=== PATIENT | male | born 1955 | race Caucasian/White ===

== ENCOUNTER 2024-03-31 07:35 | Outpatient (CLI) | payer MEDICARE, OTHER, SELFPAY ==
--- NOTE | 2024-03-31 08:56 | W.ANESCHARGE ---
Anesthesia Charges Start Date/Time Anesthesia Start Date: 03/31/24 Anesthesia Start Time: 08:23 Stop Date/Time Anesthesia Stop Date: 03/31/24 Anesthesia Stop Time: 08:55
== END 2024-03-31 07:36 | disposition home or self-care (01) ==
PROVIDERS: PCP Family Medicine; Visit Provider Internal Medicine Gastroenterology
DX: Z12.11 Encounter for screening for malignant neoplasm of colon (principal); D12.8 Benign neoplasm of rectum; Z86.0101 Personal history of adenomatous and serrated colon polyps
CPT/HCPCS: 00811; 45380; 88305; J2704

== ENCOUNTER 2024-06-27 18:33 | Emergency (ER) | payer MEDICARE, OTHER, SELFPAY ==
--- OUTSIDE RECORDS SUMMARY | 2024-06-27 18:36 | XMS_ITS | Clinical Summary ---
Author Organization [employer] Address [address] [place] [address] Care Team Providers Care [place] Hammerer Name Role Phone RobertoteMarcel garrison MD Primary Care Provider + Allergies No known active allergies Medications acetaminophen (TYLENOL) 325 mg tablet Take 2 tablets by mouth every 4 hours if needed (For mild pain.). Max acetaminophen dose: 4000mg in 24 hrs. 0 0 Active amLODIPine (NORVASC) 2.5 mg tabletIndicatio ns:Primary Raynaud's phenomenon Take 1 Tablet (2.5 mg) by mouth once daily. 90 Tablet 3 4 Active sildenafil citrate (VIAGRA) 100 mg tabletIndicatio ns:Erectile dysfunction of organic origin Take 1 Tablet (100 mg) by mouth once daily if needed for Erectile Dysfunction. Take 30min to 4 hours before sexual activity. Max 100mg/24hr. 10 Tablet 11 4 Active polyethylene glycol-electrol yte (GOLYTELY) 236-22.74-6.74 -5.86 gram suspensionIndic ations:Adenomat ous polyp of colon, unspecified part of colon Drink 2 liters the day before the procedure and 2 liters 6 hours prior to procedure. 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 10/04/2012 11/06/2020 Fracture of multiple ribs 09/19/2012 Encounters Date Type Department Care Team Description 03/31/2024 7:45 AM EXTRUDING PRESS ADJUSTER Office Visit [facility] at [address] [address] Emmanuel Clarke MD 03/31/2024 Lab Requisition [facility] [phone] Emmanuel Clarke MD from Last 3 Months Immunizations Immunization Administration Dates Next Due COVID-19 vaccine ([employer] 30mcg/0.3mL) 12YO+ BIVALENT PF, MDV 01/05/2022 Influenza, IIV3 (Age >=3 years) 01/23/2013,01/05,01/07/2011 Influenza, IIV4 (=>6mos) MDV 01/23/2015 Influenza, Inactivated AIIV4 (Age 65+ Years) Preserv Free 01/05/2022 Influenza, Inactivated IIV3 (Age 65+ Years) Preserv Free 12/23/2023 Pneumococcal Conj 20-valent (Prevnar 20) 022 Pneumococcal conj 13-Valent (Prevnar 13) 021 Td (Age >=7 Years) 03/29/2006 Tdap 09/28/2018 Zoster (Shingrix-RZV, recombinant) 01/06/2019, Family History Medical History Relation Name Comments Good Health Father Good Health Mother Relation Name Status Comments Father Alive Mother Alive Social History Tobacco Use Types Packs/Day Years Used Date Smoking Tobacco: Former Cigarettes 1 25 0 12/12/1995 - 12/11/2020 Smokeless Tobacco: Never Tobacco Cessation:Counseling Given: Yes Comments:TIP 10/03/2019 Alcohol Use Standard Drinks/Week Comments Not Currently 0 (1 standard drink = 0.6 oz pur e alcohol) PHQ-2 Answer Date Recorded PHQ-2 TOTAL SCORE 0 12/23/2023 Social Connections Answer Date Recorded Do you often feel lonely or isolated from those around you? 0 12/23/2023 Financial Resource Strain Answer Date R ecorded Difficulty of Paying Living Expenses 3 12/23/2023 Difficulty of Paying Living Expenses Not on file 12/23/2023 Food Insecurity Answer Date Recorded Do you worry your food will run out before you are able to buy more? 1 12/23/2023 Transportation Needs Answer Date Record ed Does lack of transportation keep you from medica l appointments? 1 12/23/2023 Does lack of transportation keep you from work, meetings or getting things that you need? 1 12/23/2023 Housing Stability Answer Date Recorded What is your housing situation today? 1 12/23/2023 Utilities Answer Date Recorded Do you have trouble paying f or utilities (for example, heat, electricity, water, phone)? 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 on file Not on file Not on file Obstetrics History Last Filed Vital Signs Vital Sign Reading Time Taken Comments Blood Pressure 142/64 03/15/2024 9:58 AM EXTRUDING PRESS ADJUSTER Pulse 70 03/15/2024 9:58 AM EXTRUDING PRESS ADJUSTER Temperature 36.9 C (98.4 F) 03/15/2024 9:58 AM EXTRUDING PRESS ADJUSTER Respiratory Rate 18 10/03/2019 8:26 AM CDT Oxygen Saturation 95% 03/15/2024 9:58 AM EXTRUDING PRESS ADJUSTER Inhaled Oxygen Concentration - - Weight 89.3 kg (196 lb 14.4 oz) 03/15/2024 9:58 AM EXTRUDING PRESS ADJUSTER Height 188 cm (6' 2) 03/15/2024 9:58 AM EXTRUDING PRESS ADJUSTER Body Mass Index 25.28 03/15/2024 9:58 AM EXTRUDING PRESS ADJUSTER Plan of Treatment Health Maintenance Due Date Last Done Comments Low Dose CT (for lung CA) ag e 50-80 09/16/2013 09/16/2012 RSV vaccine for adults or (1 - Risk 60-74 years 1-dose series) 2015 AAA screening age 65-74 08/19/2020 COVID-19 vaccine series (5 - 2024-25 season) 2023 01/05/2022, 03/11/2021, 07/02/2020, Additional history exists Medicare Wellness for age 65+ 12/23/2024, 01/05/2022, 11/06/2020 Depression screening for age 12+ 12/26/2024 12/27/2023, 12/23/2023, 01/05/2022, Additional history exists BMI (ht and wt on same day) for age 18+ 03/15/2025 03/15/2024, 12/23/2023, 01/05/2022, Additional history exists Tetanus booster 09/28/2028 09/28/2018, 03/29/2006 Lipids for age 45-75 12/22/2028 12/23/2023, 01/05/2022, 11/06/2020, Additional history exists Colonoscopy through age 75 03/31/203403/31, 03/31/2024, 04/13/2018, Additional history exists Tdap Completed 09/28/2018 Zoster (shingles) series for age 50+ Completed 01/06/2019, 09/28/2018 Hepatitis C screening for ag e 18-79 Completed 01/05/2022 Pneumococcal series for age 50+ Completed , 11/06/2020 Influenza Vaccine Completed 12/23/2023, , 01/23/2015, Additional history exists Medical Devices Implanted Type Area Mandarin Speaking Nanny Device Identifier Shelf Expiration Date Model / Serial / Lot Screw Neuro 4mm Matrixneuro Slf Drill Titnm - [id number] Implanted:Qty: 6 on 10/01/2019 by Jason Ontiveros MD at [facility] [employer] CMF [id number] / / Karan Hole Cover Neuro 17mm Synthes Low Pro Titnm - [id number] Implanted:Qty: 2 on 10/01/2019 by Jason Ontiveros MD at [facility] [employer] CMF [id number] # / / Procedures Procedure Name Priority Date/Time Associated Diagnosis Comments LAB TRACKING EVENT Routine 03/31/2024 8: 48 AM EXTRUDING PRESS ADJUSTER PATH TISSUE EXAM Routine 03/31/2024 8:48 AM EXTRUDING PRESS ADJUSTER COLONOSCOPY SCREENING Routine 03/31/2024 12:00 AM EXTRUDING PRESS ADJUSTER History of colon polyps LIPID PANEL W REFLEX MEASURED LDL Routine 12/23/2023 2:40 PM CDT Screening cholesterol level ANTI HCV Routine 01/05/2022 11:45 AM CDT Need for hepatitis C screening test CT CHEST WO Routine 09/16/2012 1:57 PM CDT Rib pain from Last 3 Months or Most Recently Relevant to Health Maintenance Results * LAB TRACKING EVENT (03/31/2024 8:48 AM EXTRUDING PRESS ADJUSTER) Other (Other) Client Collect / Unknown 03/31/2024 8:48 AM EXTRUDING PRESS ADJUSTER 03/31/2024 10:10 PM EXTRUDING PRESS ADJUSTER us Emmanuel Clarke MD LAB BILL ONLY Final Res ult [facility] [address] [place] [address], * PATH TISSUE EXAM (03/31/2024 8:48 AM EXTRUDING PRESS ADJUSTER) Case Report Pathology Report Case: [id number] Authorizing Provider: Emmanuel Clarke MD Collected: 03/31/2024 0848 Ordering Location: [facility] Received: 04/01/2024 0536 Pathologist: Ranjan Degroot MD Specimen: Rectal Biopsy 04/03/2024 2:11 PM EXTRUDING PRESS ADJUSTER [facility] Final Diagnosis A) RECTUM, POLYPECTOMY: 1. Hyperplastic polyp 04/03/2024 2:11 PM EXTRUDING PRESS ADJUSTER [facility] LAB[facility]ORY at [address] EXTRUDING PRESS ADJUSTER Clinical Information Mr. Gibson is a 68 y.o. with personal history of colonic polyps who presents for high risk colon cancer surveillance. 04/03/2024 2:11 PM EXTRUDING PRESS ADJUSTER [facility] Gross Description A) Received in formalin is a reeves mucosal fragment measuring 3 mm in greatest dimension, which is entirely submitted in one cassette. It is labeled with the patient's name and designated rectal biopsy. Jonnathan Glasgow 04/01/2024 10:05 AM 04/03/2024 2:11 PM EXTRUDING PRESS ADJUSTER [facility]- EN[facility] LABORATORY Microscopic Description The final diagnosis is based on microscopic examination of appropriate sections of all specimens. 04/03/2024 2:11 PM EXTRUDING PRESS ADJUSTER [facility]- [facility] LAB[facility] Additional Information Interpreted at [facility] - [address] [facility] [address] [address] 04/03/2024 2:11 PM EXTRUDING PRESS ADJUSTER [facility] Other (Rectal Biopsy) 03/31/2024 8:48 AM EXTRUDING PRESS ADJUSTER 04/01/2024 5:36 AM EXTRUDING PRESS ADJUSTER Emmanuel Clarke MD PATHOLOGY/CYTOLOGY Final Result Performing Organization Address City/State/[facility] Co de Phone Number [facility] [address] [place] [address], * COLONOSCOPY SCREENING (03/31/2024 12:00 AM EXTRUDING PRESS ADJUSTER) Marcel Tobar MD GI PROCEDURE ORD Final R esult * (ABNORMAL) LIPID PANEL W REFLEX MEASURED LDL (12/23/2023 2:40 PM CDT) CHOLESTEROL, TOTAL 203(H) <200 mg/dL [facility] HDL CHOLESTEROL 51 > OR = 40 mg/dL [facility] TRIGLYCERIDES 72 <150 mg/dL [facility] LDL-CHOLESTEROL 136(H) mg/dL (calc) [facility] Comment: Reference range: <100 Desirable range <100 mg/dL for primary prevention; <70 mg/dL for patients with CHD or diabetic patients with > or = 2 CHD risk factors. LDL-C is now calculated using the David calculation, which is a validated novel method providing better accuracy than the Friedewald equation in the estimation of LDL-C. Emmanuel SHAH et al. JOSE. 2013;310(19): 0912-0639 (http://education.Recurious/faq/RQN387) CHOL/HDLC RATIO 4.0 <5.0 (calc) [facility] NON HDL CHOLESTEROL 152(H) <130 mg/dL (calc) [facility] Comment: For patients with diabetes plus 1 major ASCVD risk factor, treating to a non-HDL-C goal of <100 mg/dL (LDL-C of <70 mg/dL) is considered a therapeutic option. Blood BLOOD SPECIMEN / Unknown 12/23/2023 2:40 PM CDT 12/23/2023 2:40 PM CDT Marcel Tobar MD CHEMISTRY Final Re sult Performing Organization Address [facility]/ZIP Co de Phone Number [facility] [address] [place] [address], [address] [address] * ANTI HCV (01/05/2022 11:45 AM CDT) HEPATITIS C ANTIBODY Non-React venus Non-React venus 01/06/2022 6:59 AM CDT [facility] Comment:Antibodies to HCV no t detected; does not exclude the possibility of exposure to HCV. Blood BLOOD SPECIMEN / Unknown Butterfly / Unknown 01/05/2022 11:45 AM CDT 01/05/2022 11:47 AM CDT us Marcel Tobar MD SEND OUTS Final Re sult [facility] [address] [place] [address], [place] * CT CHEST WO (09/16/2012 1:57 PM CDT) Anatomical Region Laterality Modality CHEST, THORAX, HEART Computed To mography 09/16/2012 2:13 PM CDT Narrative 09/16/2012 2:13 PM CDT INDICATION: Intense midback pain in the paraspinal region on the left since the patient suffered a fall on August 28, 2012. Patient fell approximately 9 feet landing mostly on his left side and break in the fall with right hand. Technique: Multi detector unenhanced axial plane helical CT of the chest was performed. Sagittal and coronal reformatted images generated. Comparison: None. Findings: The examination demonstrates acute to subacute nondisplaced fractures involving the left paraspinal 1st through 11th ribs. Some of the rib fractures demonstrated early callus formation. Incidental ununited apophyses of the transverse processes at L1 bilaterally. No other definite fractures involving the thoracic cage or spine are identified. No pleural or pericardial effusions are seen. The thoracic aorta is normal in caliber. Given the lack of intravenous contrast, no significantly enlarged intrathoracic lymph nodes are identified. No pulmonary infiltrates or contusions are identified. Images through the upper abdomen are unremarkable. Impression: 1. Multiple acute/subacute nondisplaced fractures involving the posterior paraspinal aspects of the left 1st through 11th ribs. 2. No pulmonary contusion or pneumothorax identified. Dictated by Blas Recio @ Sep 16 2012 2:13PM (Electronically Signed) Procedure Note Azeem Recio, DO - 09/16/2012 INDICATION: Intense midback pain in the paraspinal region on the left since thepatient suffered a fall on August 28, 2012. Patient fell approximately 9feet landing mostly on his left side and break in the fall with righthand. Technique: Multi detector unenhanced axial plane helical CT of the chest wasperformed. Sagittal and coronal reformatted images generated. Comparison: None. Findings: The examination demonstrates acute to subacute nondisplaced fracturesinvolving the left paraspinal 1st through 11th ribs. Some of the ribfractures demonstrated early callus formation. Incidental ununitedapophyses of the transverse processes at L1 bilaterally. No otherdefinite fractures involving the thoracic cage or spine are identified.No pleural or pericardial effusions are seen. The thoracic aorta isnormal in caliber. Given the lack of intravenous contrast, nosignificantly enlarged intrathoracic lymph nodes are identified. Nopulmonary infiltrates or contusions are identified. Images through theupper abdomen are unremarkable. Impression: 1. Multiple acute/subacute nondisplaced fractures involving the posteriorparaspinal aspects of the left 1st through 11th ribs. 2. No pulmonary contusion or pneumothorax identified. Dictated by Blas Recio @ Sep 16 2012 2:13PM (Electronically Signed) Sung Jack MD CT Final Resu lt from Last 3 Months or Most Recently Relevant to Health Maintenance Insurance [employer] PB ONLY Advance Directives * Full Code (Latest Code Status on File) Date Activated Date Inactivated Comments 09/29/2019 7:09 PM 10/03/2019 1:37 PM Care Teams [place] Hammerer Relationship Specialty Start Date End Date Votel, Marcel Lee MD [address] [place] [address] PCP - General Family Practice 12/08/23
[2024-06-27 18:40] VITALS: BP 132/74; PULSE 58; RESP 18; TEMP 36.6; O2SAT 97; BMI 24.0
--- NOTE | 2024-06-27 18:47 | ED_ITS ---
HPI - General Adult General Chief complaint: Insect Bite Stated complaint: tick bite Time Seen by Provider: 06/27/24 18:46 History of Present Illness HPI narrative: Patient presents to the emergency department complaining of a tick bite. Patient removed a tick from the back of his left calf. Area is red and painful. 68-year-old man presenting to the emergency department with concern of tick bite and related inflammation. He removed it and squeezed hard on the area. Area became red and painful admittedly now settled down. Was removed just a little bit ago. Tick may have been in place up to 24 hours. They do have the tick here. It has been encased in scotch tape. I am able to look at this more closely. Mouth parts appear to be intact and I would think this is a standard tick/wood tick. Though review of images online with spouse there is potential similarity to this and a female deer tick. Related Data Home Medications ?Medication ?Instructions ?Recorded ?Confirmed amlodipine 2.5 mg tablet 2.5 mg PO DAILY 06/27/24 06/27/24 sildenafil 100 mg tablet 100 mg PO DAILY PRN 06/27/24 06/27/24 Allergies Allergy/AdvReac Type Severity Reaction Status Date / Time No Known Drug Allergies Allergy Verified 06/27/24 18:46 Review of Systems Status of ROS: Reports: 6 or more systems reviewed and unremarkable except as noted in History and below [facility] Social History Smoking Status: Never smoker Do you use any of these nicotine containing products: None How often do you have a drink containing alcohol: never AUDIT-C Alcohol total score: 0 Non-prescribed substance use: denies use Exam Narrative: Exam Narrative: Pleasant. NAD. Energy. Dime-sized area of erythema in the back of the left calf. Central small amount of desquamation. No significant induration or calor. No residual insect parts apparent with magnified viewing. Const: Vital Signs, click to edit/add: Vital Signs - 24 hr 06/27/24 18:40 Temperature 98 F Pulse Rate [Right Pulse Oximeter] 58 L Respiratory Rate 18 Blood Pressure [Ri ght Upper Arm] 132/74 Pulse Oximetry 97 Oxygen Delivery Me thod Room Air Documenting provider has reviewed patient's vital signs: yes Course Vital Signs Vital signs: Initial Vital Signs Temperature 98 F 06/27/24 18:40 Temperature Source Temporal Artery Scan 06/27/24 18:40 Pulse Rate 58 L 06/27/24 18:40 Pulse Rhythm Regular 06/27/24 18:40 Pulse Strength 3+ Normal 06/27/24 18:40 Respiratory Rate 18 06/27/24 18:40 Blood Pressure 132/74 06/27/24 18:40 Blood Pressure Mean 93 06/27/24 18:40 Blood Pressure Position Sitting 06/27/24 18:40 Pulse Oximetry 97 06/27/24 18:40 Oxygen Delivery Method Room Air 06/27/24 18:40 Vital Signs Temperature 98 F 06/27/24 18:40 Pulse Rate 58 L 06/27/24 18:40 Respiratory Rate 18 06/27/24 18:40 Blood Pressure 132/74 06/27/24 18:40 Pulse Oximetry 97 06/27/24 18:40 Oxygen Delivery Method Room Air 06/27/24 18:40 Temperature 98 F 06/27/24 18:40 Pulse Rate 58 L 06/27/24 18:40 Respiratory Rate 18 06/27/24 18:40 Blood Pressure 132/74 06/27/24 18:40 Pulse Oximetry 97 06/27/24 18:40 Oxygen Delivery Method Room Air 06/27/24 18:40 Medications Administered Medications: Discontinued Medications Generic Name Dose Route Start Last Admin Trade Name Iainq PRN Reason Stop Dose Admin Doxycycline Hyclate 200 mg 06/27/24 19:01 06/27/24 19:42 Doxycycline Hyclate 100 Mg PO 06/27/24 19:02 200 mg ONCE ONE Administration Medical Decision Making MDM Narrative Medical decision making narrative: I think this is unlikely to be a deer tick. Furthermore duration of attachment was likely less than 24 hours so unlikely to transmit any disease. Mr. Gibson however is understandably concerned. I did offer single dose of doxycycline given here in the emergency department. See patient discharge plan for further discussion You might apply a little antibiotic ointment to this bite location over the next couple of days. Monitor for marked increase in pain, spreading redness in heat, swelling. Medical Records Medical records reviewed: Yes I reviewed the patient's medical records Discharge Plan Discharge Clinical Impression: Tick bite Patient Disposition: Home w/ Parent or Adult Condition: Stable Additional Instructions: You might apply a little antibiotic ointment to this bite location over the next couple of days. Monitor for marked increase in pain, spreading redness in heat, swelling. Prescriptions: No Action amlodipine 2.5 mg tablet 2.5 mg PO DAILY sildenafil 100 mg tablet 100 mg PO DAILY PRN Follow Up/Referrals: Marcel Tobar MD [Primary Care Provider] - Stand Alone Forms: [employer] Info Instructions
--- OUTSIDE RECORDS SUMMARY | 2024-06-27 19:27 | XMS_ITS | Data Portability ---
Author Organization [facility] - (IP) Address [address] [place] [address] Care Team Providers Care Commercial Parts Professional Name Role Phone REJI AGUILA Primary Care Provider FAM WATERMAN Referring Provider [phone] Assessment Encounter Date Assessment Date Assessment LastModified by Organization Details LastModified Time 10/31/2019 10/31/2019 Otto Gibson is a 64-year-old gentleman who is one month status post bilateral lavelle holes for bilateral subdural hematomas. He is making a nice steady recovery from his surgery. Head CT reveals interval improvement in the subdural with a small amount of fluid remaining. His incisions are healing. However, he does have a fair amount of eschar bilaterally. He completed his a short course of Keppra and has had no concerns for seizure. PLAN 1. We will have the patient follow-up in one month without imaging. This is primarily for evaluation of his incisions to ensure that they continue to heal. 2. He will follow up at two months from now with a repeat head CT. 3. The patient is provided a return to work form stating a Return to Work on November 07, 2019, without restrictions. 4. The patient understands and agrees with this plan. He will call with any questions or concerns that arise in the meantime. [email or web address] Not available 11/01/2019 11:58:37 12/05/2019 12/05/2019 ASSESSMENT 1. Status post bilateral lavelle holes for subdural hematoma evacuation on October 01, 2019, by Dr. Ontiveros. 2. Right anterior lavelle hole incision eschar formation. PLAN 1. Otto is doing quite well at this time. His incisions are healing appropriately, though the right frontal lavelle hole incision site seems to be a little delayed. The incision is otherwise intact. 2. He does have a followup appointment already scheduled on January 09, 2020, with a repeat CT of the head at that time for further evaluation. 3. We did discuss ongoing incision care instructions. Otto will continue to monitor the area and contact us with any concerns. rosa Not available 12/06/2019 09:22:19 01/09/2020 01/09/2020 RECOMMENDATION Mr. Gibson is a 64-year-old male status post bilateral lavelle hole drainage of subdural hematomas on October 01, 2019. The patient is recovering very well from surgery, now approximately 3 months out from surgery. He continues to note improvement of his headaches. He has no new neurological complaints today. His head CT scan and neuro exam are stable. The patient was seen by Dr. Ontiveros who agrees that his head CT scan looks very good and that there is no requirement for additional follow-up or a any repeat imaging in the future. Mr. Gibson knows to call should he have any questions or concerns, he can be seen at any time should he have worsening headaches or develops any new neurological complaints. rosa Not available 01/10/2020 09:04:28 Plan of Treatment Reminders Order Date Submit Date Provider Last Modified By Organization Details Last Modified Time Details Appointments None record ed. Lab None record ed. Referral None record ed. Procedures None record ed. Surgeries None record ed. Imaging None record ed. Medication Orders None record ed. Patient TargetsNo targets recorded. Patient InstructionsNo instructions recorded. Reason for Referral None Reported. Results Created Date Observation Date Name Description Value Unit Range Abnormal Flag Note LastModifiedBy Organization Detail LastModifiedTime 10/01/1909/30/2019 CT, head + brain , w/o contr ast No observ ation record ed. [email or web address] [facility] [address], [place], [address], 10/02/2019 11:15:15 10/03/19 20 10/02/2019 CT, head, w/o contr ast No observ ation record ed. joel chavez [facility] [address], [place], [address], 10/03/2019 11:25:28 10/31/19 20 10/31/2019 CT, head, w/o contr ast No observ ation record ed. [email or web address] [facility] [address] [address], [place], [address], 11/01/2019 10:34:29 01/10/20 20 01/09/2020 CT, brain , w/o contr ast No observ ation record ed. [email or web address] a [facility] [address] [facility] [address], [place], [address], 01/10/2020 09:38:59 Result Notes None recorded. Problems Name Problem SNOMED Code Status Onset Date Resolution Date Notes Provider Name and Address Organization Details Recorded Time Subdural hematoma 46200765 Active DARA Villavicencio - [facility] 0 09:21:52 Problem Notes None recorded. Procedures Surgical History None recorded. Imaging Results Imaging Date Name Status LastModified by [facility] Details LastModified Time 09/30/2019 CT, head + brain, w/o contrast completed [email or web address] [facility] [address] [place], [address], 10/02/2019 11:15:15 10/02/2019 CT, head, w/o contrast completed marina [facility] [address] [place], [address], 10/03/2019 11:25:28 10/31/2019 CT, head, w/o contrast [email or web address] [address] [facility], [place], [address], 11/01/2019 10:34:29 01/09/2020 CT, brain, w/o contrast completed [email or web address] [facility] [address] [facility] [address], [place], [address], 01/10/2020 09:38:59 Procedure Notes None recorded. Medical Equipment None Reported. Allergies No known drug allergies Medications Name Sig Start Date Stop Date Status Note LastModified by Organization Details LastModified Time levetiracetam 500 mg tablet active Not Available Not Availabl e Not Available sildenafil 100 mg tablet active Not Available Not Available No t Available oxycodone 5 mg tablet active Not Available Not Available Not Available Shingrix (PF) 50 mcg/0.5 mL intramuscular suspension, kit active Not Available Not Availa ble Not Available Vitals None Recorded Social History None recorded. Functional Status None recorded. Mental Status None recorded. Family History Nothing Reported. Medical History No medical history recorded. Past Encounters Encounter ID Performer Location Encounter Start Date Encounter Closed Date Diagnosis/Indication Diagnosis SNOMED-CT Code Diagnosis ICD10 Code Diagnosis Note [id number] Ana [facility] [id number] [place] [phone] 10/31/2019 13:19:18 10/31/2019 14:07:17 [id number] [facility] [id number] [place] [address] [id number] 12/05/2019 16:03:08 12/05/2019 16:43:10 [id number] [facility] Office [id number] [place] [address] [id number] 01/09/2020 13:43:24 01/09/2020 14:18:46 Health Concerns Section Related Observation LastModified by Organization Detai ls LastModified Time None Recorded Concern Status LastModified by Organization Details LastModified Time None Recorded Advance Directives Directive None Recorded Payers Encounter Date Sequence Insurance Name Policy Number Policy Britt Covered Member ID Britt Member ID Guarantor Name 10/31/2019 1 [place] [id number] Anya Gibson [id number] Otto Gibson 12/05/2019 1 [place] [id number] Anya Gibson [id number] Otto Gibson 01/09/2020 1 [place] [id number] Anya Gibson [id number] Otto Gibson Notes Date Note Type Note Provider Name and Address Organization Details Recorded Time 10/31/2019 text/html I had the pleasu re of seeing Otto Gibson in the Neurosurgery Clinic today as a follow-up for Dr. Ontiveros. Mr. Gibson is a 64-year-old gentleman, who is status post bilateral lavelle holes for bilateral subdural hematoma on October 01, 2019, by Dr. Ontiveros. He initially presented to [facility] on September 28 for evaluation of severe headaches. He has no history of anticoagulation and no concern for seizure activity. He did have a potential fall approximately a month prior to his presentation to the hospital. Today, he returns to clinic stating that he has been doing well overall. He does continue to have some occasional headaches; however, they have become less frequent and less severe since his surgery. He states that they most often occur in the evening. He denies any change in vision, hearing, or speech. He denies any sensorimotor complaints throughout his extremities. He states that he was previously drinking approximately 15 drinks per week prior to surgery, but he has not used any alcohol since surgery. He denies any incisional complaints. Rutherford were removed by his PCP. He does continue to have some scabbing over his incisions, but denies any drainage, edema, or significant pain. DARA Waters - [facility] 11/01/2019 11:59:03 12/05/2019 text/html Mr. Gibson retur ns to Dr. Ontiveros's clinic, having last been seen on October 31, 2019, by Radha Salgado PA-C. Of note, Mr. Gibson is status post bilateral lavelle holes for bilateral subdural hematoma evacuation on October 01, 2019, by Dr. Ontiveros. When he was last seen, his head CT showed a good improvement in his subdural collections with a slight amount of fluid present still over the left frontal region. This appointment today was arranged for an incision check as he did have some ongoing eschar formation at his last appointment. Otto reports that his incisions have almost completely healed up with the exception of the right anterior lavelle hole site, which does still have some eschar formation. He reports no issues with it, though. DARA Villavicencio - [facility] 12/06/2019 09:22:41 01/09/2020 text/html Mr. Gibson is a 64-year-old male who underwent bilateral lavelle hole procedure for evacuation of subdural hematoma on October 01, [address] Ontiveros. The patient had suffered a fall 1 to 2 months prior when he was sleepwalking. Since we last saw the patient, he continues to recover well. There was some concerns on his first 2 postop appointments regarding healing of his incision. There was a fair amount of eschar bilaterally. The patient has had resolution of this. He is not currently experiencing any issues with his incision. There has been no drainage or evidence of infection. Mr. Gibson reports that he continues to have intermittent headaches, when he experiences headaches, he describes them as generalized. He also notes associated photo and phonophobia. The headaches are often brought on if he is on his computer for prolonged periods. He describes the headaches as being mild. He does not take any pain medication for them and they resolve with time. He does note that they have gradually been becoming more infrequent over the last several months. Mr. Gibson denies any visual changes, any nausea or vomiting. He denies any upper or lower extremity numbness or tingling. He does note an area over the right side of his scalp that he senses is being numb, but not painful. Mr. Gibson denies any issues with balance or ambulation. He does overall note that his stamina has declined since surgery and he feels deconditioned but is hopeful that this will improve with time and he starts to increase his physical activity. DARA Villavicencio - [facility] 01/10/2020 09:04:45
--- OUTSIDE RECORDS SUMMARY | 2024-06-27 19:27 | XMS_ITS | Clinical Summary ---
Author Organization [facility] Address [address] [place] [address] Care Team Providers Care Arts And Crafts Instructor Name Role Phone RobertoteMarcel garrison MD Primary [...] Department Care Team Description 03/31/2024 7:45 AM CAR REPAIRER APPRENTICE Office Visit [facility] at [address] [phone] Emmanuel Clarke MD 03/31/2024 Lab Requisition [facility] [phone] Emmanuel Clarke MD from Last 3 Months Immunizations Immunization Administration Dates Next Due COVID-19 vaccine ([employer] NTech 30mcg/0.3mL) 12YO+ BIVALENT PF, MDV 01/05/2022 [...] on file Legal Sex Male 5:48 AM CAR REPAIRER APPRENTICE Gender Identity Not on file Sexual Orientation Not on file Occupation Industry Job Start Date Job End Date sales Not on file Not on file Not on file Obstetrics History Last Filed Vital Signs Vital Sign Reading Time Taken Comments Blood Pressure 142/64 03/15/2024 9:58 AM CAR REPAIRER APPRENTICE Pulse 70 03/15/2024 9:58 AM CAR REPAIRER APPRENTICE Temperature 36.9 C (98.4 F) 03/15/2024 9:58 AM CAR REPAIRER APPRENTICE Respiratory Rate 18 10/03/2019 8:26 AM CDT Oxygen Saturation 95% 03/15/2024 9:58 AM CAR REPAIRER APPRENTICE Inhaled Oxygen Concentration - - Weight 89.3 kg (196 lb 14.4 oz) 03/15/2024 9:58 AM CAR REPAIRER APPRENTICE Height 188 cm (6' 2) 03/15/2024 9:58 AM CAR REPAIRER APPRENTICE Body Mass Index 25.28 03/15/2024 9:58 AM CAR REPAIRER APPRENTICE Plan of Treatment Health Maintenance Due Date [...] history exists Medical Devices Implanted Type Area Transit Operations Supervisor Device Identifier Shelf Expiration Date Model / Serial / Lot Screw Neuro 4mm Matrixneuro Slf Drill Titnm - [id number] Implanted:Qty: 6 on 10/01/2019 by Jason Ontiveros MD at [facility] [employer] CMF [id number]. [id number] .[id number]# / / Karan Hole Cover Neuro 17mm Synthes Low Pro Titnm - [id number] Implanted:Qty: 2 on 10/01/2019 by Jason Ontiveros MD at [facility] [employer] CMF [id number] # / / Procedures Procedure Name Priority Date/Time Associated Diagnosis Comments LAB TRACKING EVENT Routine 03/31/2024 8: 48 AM CAR REPAIRER APPRENTICE PATH TISSUE EXAM Routine 03/31/2024 8:48 AM CAR REPAIRER APPRENTICE COLONOSCOPY SCREENING Routine 03/31/2024 12:00 AM CAR REPAIRER APPRENTICE History of colon polyps LIPID PANEL W REFLEX MEASURED LDL Routine 12/23/2023 2:40 PM CDT Screening cholesterol level ANTI HCV Routine 01/05/2022 11:45 AM CDT Need for hepatitis C screening test CT CHEST WO Routine 09/16/2012 1:57 PM CDT Rib pain from Last 3 Months or Most Recently Relevant to Health Maintenance Results * LAB TRACKING EVENT (03/31/2024 8:48 AM CAR REPAIRER APPRENTICE) Other (Other) Client Collect / Unknown 03/31/2024 8:48 AM CAR REPAIRER APPRENTICE 03/31/2024 10:10 PM CAR REPAIRER APPRENTICE us Emmanuel Clarke MD LAB BILL ONLY Final Res ult [facility] [address] [place] [address], * PATH TISSUE EXAM (03/31/2024 8:48 AM CAR REPAIRER APPRENTICE) Case Report Pathology Report Case: [id number] Authorizing Provider: Emmanuel Clarke MD Collected: 03/31/2024 0848 Ordering Location: [facility] Received: 04/01/2024 0536 Pathologist: Ranjan Degroot MD Specimen: Rectal Biopsy 04/03/2024 2:11 PM CAR REPAIRER APPRENTICE [facility] Final Diagnosis A) RECTUM, POLYPECTOMY: 1. Hyperplastic polyp 04/03/2024 2:11 PM CAR REPAIRER APPRENTICE [facility] at 1411 CAR REPAIRER APPRENTICE Clinical Information Mr. Gibson is a 68 y.o. with personal history of colonic polyps who presents for high risk colon cancer surveillance. 04/03/2024 2:11 PM CAR REPAIRER APPRENTICE [facility] Gross Description A) Received in formalin is a reeves mucosal fragment measuring 3 mm in greatest dimension, which is entirely submitted in one cassette. It is labeled with the patient's name and designated rectal biopsy. Jonnathan Glasgow 04/01/2024 10:05 AM 04/03/2024 2:11 PM CAR REPAIRER APPRENTICE [facility] Microscopic Description The final diagnosis is based on microscopic examination of appropriate sections of all specimens. 04/03/2024 2:11 PM CAR REPAIRER APPRENTICE [facility] Additional Information Interpreted at [facility] - [address] [facility] [address] [address] 04/03/2024 2:11 PM CAR REPAIRER APPRENTICE [facility] Other (Rectal Biopsy) 03/31/2024 8:48 AM CAR REPAIRER APPRENTICE 04/01/2024 5:36 AM CAR REPAIRER APPRENTICE Emmanuel Clarke MD PATHOLOGY/CYTOLOGY Final Result Performing Organization Address City/State/[facility] Co de Phone Number [facility] [address] [place] [address], * COLONOSCOPY SCREENING (03/31/2024 12:00 AM CAR REPAIRER APPRENTICE) Marcel Tobar MD GI PROCEDURE ORD Final [...] LDL-C. Emmanuel SHAH et al. JOSE. 2013;310(19): 5427-0865 (http://education.toucanBox/faq/WLR342) CHOL/HDLC RATIO 4.0 <5.0 (calc) [facility] [...] CHEMISTRY Final Re sult Performing Organization Address [facility]/ZIP Co de Phone Number [employer] [facility] [address] [place] [address], [address] [address] * ANTI HCV (01/05/2022 11:45 AM CDT) HEPATITIS C ANTIBODY Non-React venus Non-React venus 01/06/2022 6:59 AM CDT [facility] Comment:Antibodies to HCV no t detected; does not exclude the possibility of exposure to HCV. Blood BLOOD SPECIMEN / Unknown Butterfly / Unknown 01/05/2022 11:45 AM CDT 01/05/2022 11:47 AM CDT us Marcel Tobar MD SEND OUTS Final Re sult [facility] [address] [place] [address], [place] * CT CHEST WO (09/16/2012 1:57 [...] Most Recently Relevant to Health Maintenance Insurance [employer] [facility] PB ONLY Advance Directives * Full Code (Latest Code Status on File) Date Activated Date Inactivated Comments 09/29/2019 7:09 PM 10/03/2019 1:37 PM Care Teams Arts And Crafts Instructor Relationship Specialty Start Date End Date Votel, Marcel Lee MD [address] [place] [address] PCP - General Family Practice 12/08/23
[2024-06-27] MEDS: DOXYCYCLINE HYCLATE 100 MG 200 MG PO (19:42)
== END 2024-06-27 19:53 | disposition home or self-care (01) ==
PROVIDERS: Emergency Provider Family Medicine; PCP Family Medicine
DX: S80.862A Insect bite (nonvenomous), left lower leg, initial encounter (principal); W57.XXXA Bitten or stung by nonvenomous insect and other nonvenomous arthropods, initial encounter
CPT/HCPCS: 99283; A9270